=== PATIENT | male | born 1955 | race Caucasian/White ===

== ENCOUNTER 2022-03-20 18:21 | Inpatient (IN) ==
[2022-03-20] MEDS ORDERED: Diphenoxylate/Atropine 1 TAB TABLET PO PRN (19:02)
[2022-03-20] MEDS ORDERED: Albuterol 2.5 MG/3 ML NEBULIZER IH PRN (19:02)
[2022-03-20] MEDS ORDERED: *HR* Dextrose 50 % in Water (Syg) 50 ML SYRINGE IVP PRN (19:10)
[2022-03-20] MEDS ORDERED: D5% in Water 1,000 ML IVC PRN (19:10)
[2022-03-20] MEDS ORDERED: Dextrose 4 GM Chewable Tablets PO PRN ×2 (19:10)
[2022-03-20] MEDS ORDERED: Ondansetron ODT 4 MG TAB.RAPDIS SL PRN (19:14)
[2022-03-20] MEDS ORDERED: Insulin DETEMIR 100 UNIT/ML per UNIT SUBQ ONE (21:00)
[2022-03-20] MEDS: Apixaban 2.5 MG TABLET PO SCH (21:41)
[2022-03-20] MEDS: Insulin LISPRO 300 UNITS/3 ML VIAL SUBQ SCH (21:45)
[2022-03-20] MEDS: Lactulose Oral Soln 20 GM/30 ML UDC PO SCH (21:46)
[2022-03-21 08:02] LABS: Basophils % 0.2 %; Eosinophils # 0.1 K/mcL (0.0-0.6); Eosinophils % 1.9 %; Hematocrit 27.2 % (37.5-50.1); Immature Granulocytes % 0.6 % (0-4); Lymphocytes # 0.3 K/mcL (0.6-4.6); Lymphocytes % 6.7 %; Mean Corpuscular HGB Conc 29.4 g/dL (31.6-35.5); Mean Corpuscular Hemoglobin 25.8 pg (28.0-33.3); Mean Corpuscular Volume 87.7 fL (83.0-100.0); Mean Platelet Volume 11.6 fL (9.4-12.4); Monocytes # 0.4 K/mcL (0.0-1.3); Monocytes % 8.6 %; Neutrophils # 3.8 K/mcL (1.6-8.9); Red Cell Distribution Width 17.1 % (11.5-14.5); White Blood Count 4.6 K/mcL (4.3-11.1)
[2022-03-21 08:08] LABS: Platelet Count 54 K/mcL (140-400)
[2022-03-21] MEDS: ARIPiprazole 10 MG TABLET PO SCH (08:14)
[2022-03-21] MEDS: Loratadine 10 MG TABLET PO SCH (08:15)
[2022-03-21] MEDS: Fluticasone Propionate Nasal 50 MCG/SPRAY BOTTLE NS SCH (08:15)
[2022-03-21] MEDS: Apixaban 2.5 MG TABLET PO SCH ×2 (08:15→19:56)
[2022-03-21] MEDS: calcium polycarbophiL 625 MG TABLET PO SCH (08:15)
[2022-03-21] MEDS: BuPROPion XL (24 HR) 150 MG TABLET PO SCH (08:15)
[2022-03-21] MEDS: Lactulose Oral Soln 20 GM/30 ML UDC PO SCH ×3 (08:15→19:56)
[2022-03-21] MEDS: Insulin LISPRO 300 UNITS/3 ML VIAL SUBQ SCH ×7 (08:16→19:56)
[2022-03-21] MEDS: Dapagliflozin Propanediol [Farxiga] 10 MG Tablet PO SCH (08:18)
[2022-03-21] MEDS: LIRAGLUTIDE SQ SCH (08:18)
[2022-03-21 08:50] LABS: Potassium 3.5 mEq/L (3.5-5.1)
[2022-03-21] MEDS: Budesonide/Formoterol 160/4.5 1 PUFF INH IH SCH ×2 (09:25→21:19)
[2022-03-21] MEDS: Tiotropium 10 INH DOSE IH SCH (09:38)
[2022-03-21] MEDS ORDERED: Budesonide/Formoterol 160/4.5 1 PUFF INH IH SCH (10:00)
[2022-03-21] MEDS: Ergocalciferol (VIT D2) 50,000 UNIT (1.25MG) CAP PO SCH (11:52)
[2022-03-21] MEDS: Insulin DETEMIR 100 UNIT/ML X5UNITS SUBQ SCH (19:56)
[2022-03-22] MEDS: Tiotropium 10 INH DOSE IH SCH (08:06)
[2022-03-22] MEDS: Budesonide/Formoterol 160/4.5 1 PUFF INH IH SCH ×2 (08:07→21:21)
[2022-03-22] MEDS: Insulin LISPRO 300 UNITS/3 ML VIAL SUBQ SCH ×7 (08:51→20:36)
[2022-03-22] MEDS: Dapagliflozin Propanediol [Farxiga] 10 MG Tablet PO SCH (08:53)
[2022-03-22] MEDS: LIRAGLUTIDE SQ SCH (08:53)
[2022-03-22] MEDS: ARIPiprazole 10 MG TABLET PO SCH ×2 (14:52→17:12)
[2022-03-22] MEDS: calcium polycarbophiL 625 MG TABLET PO SCH ×2 (14:52→17:14)
[2022-03-22] MEDS: Loratadine 10 MG TABLET PO SCH (14:52)
[2022-03-22] MEDS: Apixaban 2.5 MG TABLET PO SCH ×2 (14:52→20:35)
[2022-03-22] MEDS: Fluticasone Propionate Nasal 50 MCG/SPRAY BOTTLE NS SCH (14:53)
[2022-03-22] MEDS: BuPROPion XL (24 HR) 150 MG TABLET PO SCH ×2 (14:53→17:14)
[2022-03-22] MEDS: Lactulose Oral Soln 20 GM/30 ML UDC PO SCH ×3 (14:53→16:59)
[2022-03-22] MEDS: Insulin DETEMIR 100 UNIT/ML X5UNITS SUBQ SCH (20:36)
[2022-03-23] MEDS: ARIPiprazole 10 MG TABLET PO SCH (08:35)
[2022-03-23] MEDS: Apixaban 2.5 MG TABLET PO SCH ×2 (08:36→21:08)
[2022-03-23] MEDS: Lactulose Oral Soln 20 GM/30 ML UDC PO SCH ×3 (08:37→21:08)
[2022-03-23] MEDS: Loratadine 10 MG TABLET PO SCH (08:37)
[2022-03-23] MEDS: Fluticasone Propionate Nasal 50 MCG/SPRAY BOTTLE NS SCH (08:38)
[2022-03-23] MEDS: Dapagliflozin Propanediol [Farxiga] 10 MG Tablet PO SCH (08:44)
[2022-03-23] MEDS: LIRAGLUTIDE SQ SCH (08:45)
[2022-03-23] MEDS: calcium polycarbophiL 625 MG TABLET PO SCH (08:52)
[2022-03-23] MEDS: BuPROPion XL (24 HR) 150 MG TABLET PO SCH (08:52)
[2022-03-23] MEDS: Insulin LISPRO 300 UNITS/3 ML VIAL SUBQ SCH ×6 (08:53→20:58)
[2022-03-23] MEDS: Tiotropium 10 INH DOSE IH SCH (09:26)
[2022-03-23] MEDS: Budesonide/Formoterol 160/4.5 1 PUFF INH IH SCH ×2 (09:27→22:08)
[2022-03-23] MEDS: Insulin DETEMIR 100 UNIT/ML X5UNITS SUBQ SCH (21:09)
[2022-03-24] MEDS: Tiotropium 10 INH DOSE IH SCH (09:43)
[2022-03-24] MEDS: Budesonide/Formoterol 160/4.5 1 PUFF INH IH SCH ×2 (09:43→21:42)
[2022-03-24] MEDS: Insulin LISPRO 300 UNITS/3 ML VIAL SUBQ SCH ×4 (10:06→21:13)
[2022-03-24] MEDS: Dapagliflozin Propanediol [Farxiga] 10 MG Tablet PO SCH (10:07)
[2022-03-24] MEDS: Apixaban 2.5 MG TABLET PO SCH ×2 (10:07→21:12)
[2022-03-24] MEDS: LIRAGLUTIDE SQ SCH (10:07)
[2022-03-24] MEDS: Lactulose Oral Soln 20 GM/30 ML UDC PO SCH ×3 (10:07→21:12)
[2022-03-24] MEDS: ARIPiprazole 10 MG TABLET PO SCH (13:53)
[2022-03-24] MEDS: Acetaminophen 325 MG TABLET PO PRN (13:53)
[2022-03-24] MEDS: Loratadine 10 MG TABLET PO SCH (13:54)
[2022-03-24] MEDS: Ergocalciferol (VIT D2) 50,000 UNIT (1.25MG) CAP PO SCH (13:54)
[2022-03-24] MEDS: calcium polycarbophiL 625 MG TABLET PO SCH (13:55)
[2022-03-24] MEDS: BuPROPion XL (24 HR) 150 MG TABLET PO SCH (13:55)
[2022-03-24] MEDS: Fluticasone Propionate Nasal 50 MCG/SPRAY BOTTLE NS SCH (13:57)
[2022-03-24] MEDS ORDERED: Furosemide 20 MG TABLET PO SCH (17:00)
[2022-03-24] MEDS: Melatonin 3 MG TABLET PO PRN (21:12)
[2022-03-24] MEDS: Insulin DETEMIR 100 UNIT/ML X5UNITS SUBQ SCH (21:12)
[2022-03-25 07:19] LABS: Hematocrit 24.1 % (37.5-50.1); Hemoglobin 7.2 g/dL (12.9-16.9); Mean Corpuscular HGB Conc 29.9 g/dL (31.6-35.5); Mean Platelet Volume 10.5 fL (9.4-12.4); Red Blood Count 2.77 M/mcL (4.19-5.50); Red Cell Distribution Width 17.2 % (11.5-14.5)
[2022-03-25 07:23] LABS: Platelet Count 56 K/mcL (140-400)
[2022-03-25 07:46] LABS: Calcium 8.4 mg/dL (8.6-10.3); Magnesium 1.9 mg/dL (1.6-2.6); Potassium 2.8 mEq/L (3.5-5.1)
[2022-03-25] MEDS: Insulin LISPRO 300 UNITS/3 ML VIAL SUBQ SCH ×4 (08:08→21:49)
[2022-03-25] MEDS: ARIPiprazole 10 MG TABLET PO SCH (08:16)
[2022-03-25] MEDS: Loratadine 10 MG TABLET PO SCH (08:18)
[2022-03-25] MEDS: BuPROPion XL (24 HR) 150 MG TABLET PO SCH (08:18)
[2022-03-25] MEDS: Fluticasone Propionate Nasal 50 MCG/SPRAY BOTTLE NS SCH (08:19)
[2022-03-25] MEDS: calcium polycarbophiL 625 MG TABLET PO SCH (08:19)
[2022-03-25] MEDS: Lactulose Oral Soln 20 GM/30 ML UDC PO SCH ×3 (08:19→21:47)
[2022-03-25] MEDS: LIRAGLUTIDE SQ SCH (08:20)
[2022-03-25] MEDS: Dapagliflozin Propanediol [Farxiga] 10 MG Tablet PO SCH (08:20)
[2022-03-25] MEDS: Budesonide/Formoterol 160/4.5 1 PUFF INH IH SCH ×2 (08:44→21:42)
[2022-03-25] MEDS: Tiotropium 10 INH DOSE IH SCH (08:44)
[2022-03-25] MEDS: Apixaban 2.5 MG TABLET PO SCH ×2 (09:25→21:48)
[2022-03-25 14:14] LABS: Calcium 8.5 mg/dL (8.6-10.3); Potassium 3.3 mEq/L (3.5-5.1)
[2022-03-25] MEDS: Insulin DETEMIR 100 UNIT/ML X5UNITS SUBQ SCH (21:47)
[2022-03-25] MEDS: Melatonin 3 MG TABLET PO PRN (21:48)
[2022-03-26 06:51] LABS: Hematocrit 23.2 % (37.5-50.1); Hemoglobin 7.1 g/dL (12.9-16.9); Mean Corpuscular HGB Conc 30.6 g/dL (31.6-35.5); Mean Corpuscular Hemoglobin 26.6 pg (28.0-33.3); Mean Corpuscular Volume 86.9 fL (83.0-100.0); Red Blood Count 2.67 M/mcL (4.19-5.50); Red Cell Distribution Width 17.5 % (11.5-14.5); White Blood Count 5.5 K/mcL (4.3-11.1)
[2022-03-26 06:56] LABS: Platelet Count 62 K/mcL (140-400)
[2022-03-26 07:18] LABS: Calcium 8.8 mg/dL (8.6-10.3); Potassium 3.3 mEq/L (3.5-5.1)
[2022-03-26] MEDS: Tiotropium 10 INH DOSE IH SCH (08:57)
[2022-03-26] MEDS: Budesonide/Formoterol 160/4.5 1 PUFF INH IH SCH ×2 (08:57→21:11)
[2022-03-26] MEDS: Insulin LISPRO 300 UNITS/3 ML VIAL SUBQ SCH ×4 (09:48→21:44)
[2022-03-26] MEDS: Lactulose Oral Soln 20 GM/30 ML UDC PO SCH ×2 (09:48→20:55)
[2022-03-26] MEDS: BuPROPion XL (24 HR) 150 MG TABLET PO SCH (09:50)
[2022-03-26] MEDS: ARIPiprazole 10 MG TABLET PO SCH (09:50)
[2022-03-26] MEDS: Apixaban 2.5 MG TABLET PO SCH ×2 (09:50→20:55)
[2022-03-26] MEDS: calcium polycarbophiL 625 MG TABLET PO SCH (09:51)
[2022-03-26] MEDS: Loratadine 10 MG TABLET PO SCH (09:51)
[2022-03-26] MEDS: Fluticasone Propionate Nasal 50 MCG/SPRAY BOTTLE NS SCH (09:52)
[2022-03-26] MEDS: Dapagliflozin Propanediol [Farxiga] 10 MG Tablet PO SCH (09:54)
[2022-03-26] MEDS: LIRAGLUTIDE SQ SCH (09:55)
[2022-03-26] MEDS: Insulin DETEMIR 100 UNIT/ML X5UNITS SUBQ SCH (21:44)
[2022-03-27] MEDS: Acetaminophen 325 MG TABLET PO PRN ×2 (04:32→14:40)
[2022-03-27] MEDS: Insulin LISPRO 300 UNITS/3 ML VIAL SUBQ SCH ×4 (07:34→19:53)
[2022-03-27 08:18] LABS: Hematocrit 23.7 % (37.5-50.1); Hemoglobin 7.2 g/dL (12.9-16.9); Mean Corpuscular HGB Conc 30.4 g/dL (31.6-35.5); Mean Corpuscular Hemoglobin 26.5 pg (28.0-33.3); Mean Corpuscular Volume 87.1 fL (83.0-100.0); Mean Platelet Volume 12.5 fL (9.4-12.4); Red Blood Count 2.72 M/mcL (4.19-5.50); Red Cell Distribution Width 17.8 % (11.5-14.5); White Blood Count 4.1 K/mcL (4.3-11.1)
[2022-03-27 08:23] LABS: Platelet Count 66 K/mcL (140-400)
[2022-03-27] MEDS: ARIPiprazole 10 MG TABLET PO SCH (08:33)
[2022-03-27] MEDS: Apixaban 2.5 MG TABLET PO SCH ×2 (08:34→19:53)
[2022-03-27] MEDS: Loratadine 10 MG TABLET PO SCH (08:34)
[2022-03-27] MEDS: calcium polycarbophiL 625 MG TABLET PO SCH (08:34)
[2022-03-27] MEDS: BuPROPion XL (24 HR) 150 MG TABLET PO SCH (08:35)
[2022-03-27] MEDS: Fluticasone Propionate Nasal 50 MCG/SPRAY BOTTLE NS SCH (08:36)
[2022-03-27] MEDS: Lactulose Oral Soln 20 GM/30 ML UDC PO SCH ×2 (08:37→19:53)
[2022-03-27] MEDS: Dapagliflozin Propanediol [Farxiga] 10 MG Tablet PO SCH (08:37)
[2022-03-27] MEDS: LIRAGLUTIDE SQ SCH (08:37)
[2022-03-27 08:44] LABS: Calcium 8.9 mg/dL (8.6-10.3)
[2022-03-27] MEDS: Tiotropium 10 INH DOSE IH SCH (09:32)
[2022-03-27] MEDS: Budesonide/Formoterol 160/4.5 1 PUFF INH IH SCH ×2 (09:33→22:09)
[2022-03-27] MEDS: Insulin DETEMIR 100 UNIT/ML X5UNITS SUBQ SCH (19:56)
[2022-03-28] MEDS: Fluticasone Propionate Nasal 50 MCG/SPRAY BOTTLE NS SCH (07:27)
[2022-03-28] MEDS: Apixaban 2.5 MG TABLET PO SCH ×2 (07:28→20:58)
[2022-03-28] MEDS: calcium polycarbophiL 625 MG TABLET PO SCH (07:28)
[2022-03-28] MEDS: Loratadine 10 MG TABLET PO SCH (07:28)
[2022-03-28] MEDS: ARIPiprazole 10 MG TABLET PO SCH (07:28)
[2022-03-28] MEDS: Lactulose Oral Soln 20 GM/30 ML UDC PO SCH ×2 (07:28→20:57)
[2022-03-28] MEDS: Dapagliflozin Propanediol [Farxiga] 10 MG Tablet PO SCH (07:30)
[2022-03-28] MEDS: BuPROPion XL (24 HR) 150 MG TABLET PO SCH (07:30)
[2022-03-28] MEDS: LIRAGLUTIDE SQ SCH (07:30)
[2022-03-28] MEDS: Insulin LISPRO 300 UNITS/3 ML VIAL SUBQ SCH ×4 (07:32→20:59)
[2022-03-28] MEDS: Ergocalciferol (VIT D2) 50,000 UNIT (1.25MG) CAP PO SCH (07:38)
[2022-03-28] MEDS: Tiotropium 10 INH DOSE IH SCH (09:26)
[2022-03-28] MEDS: Budesonide/Formoterol 160/4.5 1 PUFF INH IH SCH ×2 (09:27→22:32)
[2022-03-28 19:37] VITALS: RESP 16
[2022-03-28] MEDS: Insulin DETEMIR 100 UNIT/ML X5UNITS SUBQ SCH (20:58)
[2022-03-29 07:01] VITALS: BP 97/59; PULSE 86; TEMP 98
[2022-03-29 07:01] LABS: Basophils % 0.5 %; Eosinophils # 0.2 K/mcL (0.0-0.6); Eosinophils % 6.1 %; Hematocrit 21.7 % (37.5-50.1); Hemoglobin 6.6 g/dL (12.9-16.9); Immature Granulocytes % 0.8 % (0-4); Lymphocytes # 0.4 K/mcL (0.6-4.6); Lymphocytes % 10.9 %; Mean Corpuscular HGB Conc 30.4 g/dL (31.6-35.5); Mean Corpuscular Hemoglobin 26.6 pg (28.0-33.3); Mean Corpuscular Volume 87.5 fL (83.0-100.0); Mean Platelet Volume 11.4 fL (9.4-12.4); Monocytes # 0.4 K/mcL (0.0-1.3); Monocytes % 11.1 %; Neutrophils # 2.7 K/mcL (1.6-8.9); Red Blood Count 2.48 M/mcL (4.19-5.50); Red Cell Distribution Width 18.2 % (11.5-14.5); Segmented Neutrophils % 70.6 %; White Blood Count 3.8 K/mcL (4.3-11.1)
[2022-03-29 07:09] LABS: Platelet Count 63 K/mcL (140-400)
[2022-03-29 07:22] LABS: Calcium 8.9 mg/dL (8.6-10.3); Potassium 2.8 mEq/L (3.5-5.1)
[2022-03-29] MEDS ORDERED: Furosemide 20 MG/2 ML VIAL IVP ONE (07:42)
[2022-03-29] MEDS ORDERED: 0.9 % Sodium Chloride 250 ML IVC SCH (07:45)
[2022-03-29] MEDS: ARIPiprazole 10 MG TABLET PO SCH (08:41)
[2022-03-29] MEDS: BuPROPion XL (24 HR) 150 MG TABLET PO SCH (08:41)
[2022-03-29] MEDS: Loratadine 10 MG TABLET PO SCH (08:42)
[2022-03-29] MEDS: calcium polycarbophiL 625 MG TABLET PO SCH (08:42)
[2022-03-29] MEDS: LIRAGLUTIDE SQ SCH (08:42)
[2022-03-29] MEDS: Lactulose Oral Soln 20 GM/30 ML UDC PO SCH (08:42)
[2022-03-29] MEDS: Dapagliflozin Propanediol [Farxiga] 10 MG Tablet PO SCH (08:42)
[2022-03-29] MEDS: Insulin LISPRO 300 UNITS/3 ML VIAL SUBQ SCH (08:47)
[2022-03-29] MEDS: Tiotropium 10 INH DOSE IH SCH (09:08)
[2022-03-29] MEDS: Budesonide/Formoterol 160/4.5 1 PUFF INH IH SCH (09:08)
[2022-03-29 09:10] VITALS: O2SAT 98
== END 2022-03-29 11:27 | disposition short-term general hospital (02) | DRG 682 ==
LOC: INPPIK 18:43
PROVIDERS: ADMIT Family Medicine; ATTEND Family Medicine